=== PATIENT | female | born 1960 | race Caucasian/White ===

== ENCOUNTER 2019-02-12 18:19 | Emergency (ER) | payer OTHER ==
[2019-02-12] MEDS ORDERED: MORPHINE SULFATE 4 MG/ML SYRINGE IVP STA (18:45)
[2019-02-12] MEDS ORDERED: MORPHINE SULFATE 4 MG/ML SYRINGE IV STA (18:55)
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
[2019-02-12] MEDS ORDERED: traMADol 50 MG STARTER PACK 3 TAB BTL PO STA (21:39)
[2019-02-12 22:09] VITALS: BP 151/81; PULSE 65; RESP 18; TEMP 98
== END 2019-02-12 22:15 | disposition home or self-care (01) ==
LOC: EC 18:19
DX: T25.021A Burn of unspecified degree of right foot, initial encounter (principal); T31.0 Burns involving less than 10% of body surface; X02.0XXA Exposure to flames in controlled fire in building or structure, initial encounter; Y93.89 Activity, other specified; Y92.89 Other specified places as the place of occurrence of the external cause
CPT/HCPCS: 99283; 96374; J2270